=== PATIENT | male | born 1995 | race American Indian/Alaskan Native ===

== ENCOUNTER 2021-06-01 04:20 | Emergency (ER) | payer SELFPAY ==
[2021-06-01 04:38] VITALS: BP 100/56
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
[2021-06-01] MEDS ORDERED: KETOROLAC 30 MG/1 ML INJ IM ONE (05:32)
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
== END 2021-06-01 06:02 | disposition home or self-care (01) ==
LOC: ED 04:20
DX: S00.93XA Contusion of unspecified part of head, initial encounter (principal); R51.9 Headache, unspecified; M54.2 Cervicalgia; M25.552 Pain in left hip; M54.50 Low back pain, unspecified; V89.2XXA Person injured in unspecified motor-vehicle accident, traffic, initial encounter; Y93.89 Activity, other specified; Y92.488 Other paved roadways as the place of occurrence of the external cause; Y99.8 Other external cause status
CPT/HCPCS: 70450; 72100; 72125; 73552; 96372; 99284; J1885